=== PATIENT | female | born 1950 | race Caucasian/White ===

== ENCOUNTER 2025-04-21 12:57 | Outpatient (CLI) | payer OTHER | END 2025-04-21 13:02 | disposition home or self-care (01) | LOC: SONOGRAMA 12:57 | PROVIDERS: ATTEND Pathology Anatomic Pathology & Clinical Pathology | DX: D34 Benign neoplasm of thyroid gland (principal); E07.89 Other specified disorders of thyroid; C73 Malignant neoplasm of thyroid gland ==